=== PATIENT | female | born 1985 | race Caucasian/White ===

== ENCOUNTER 2017-05-26 16:24 | Emergency (ER) | payer SELFPAY ==
[~2017-05-26] VITALS: Ht 172.7 cm; Wt 102.3 kg
[2017-05-26 18:15] LABS: STREP SCREEN NEGATIVE (NEGATIVE)
[2017-05-26 19:08] VITALS: BP 135/74
== END 2017-05-26 18:58 | disposition home or self-care (01) ==
LOC: ED 16:24
PROVIDERS: Nurse Practitioner Primary Care
DX: O99.511 Diseases of the respiratory system complicating pregnancy, first trimester (principal); Z3A.01 Less than 8 weeks gestation of pregnancy; J06.9 Acute upper respiratory infection, unspecified; B34.9 Viral infection, unspecified; Z88.2 Allergy status to sulfonamides